=== PATIENT | male | born 1965 | race Hispanic/Latino ===

== ENCOUNTER 2018-11-18 07:42 | Day surgery (SDC) | payer OTHER, SELFPAY ==
[2018-11-16 09:03] LABS: Absolute Lymphocytes (CBC) 1.7 K/uL (0.7-4.9); Basophils % 1.1 % (0-1.3); Eosinophils % 3.6 % (0-4.4); Hematocrit 43.7 % (39.6-49.0); Lymphocytes % 28.2 % (15.3-44.8); MPV 7.1 fL (7.6-11.3); Monocytes % 8.1 % (3.3-12.3)
[2018-11-16 09:25] LABS: Potassium 4.3 mmol/L (3.5-5.1)
--- NOTE | 2018-11-16 09:52 | RAD REPORT ---
EXAM DESCRIPTION: RAD - Chest Pa And Lat (2 Views) - 11/16/2018 8:44 am CLINICAL HISTORY: Preop chest, pending hernia surgery COMPARISON: None. TECHNIQUE: PA and lateral views of the chest were obtained. FINDINGS: The lungs are clear. Heart size is normal and central vasculature is within normal limit s. No pleural effusion or pneumothorax seen. No acute bony finding noted. No aortic abnormality. IMPRESSION: No acute cardiopulmonary process.
--- NOTE | 2018-11-16 11:07 | EKG ---
Test Date: 2018-11-16 Test Time: 08:31:25 Knockout Man: AMAURY MEASUREMENT RESULTS: Intervals: Rate: 41 OR: 196 QRSD: 100 QT: 492 QTc: 405 [place]: P: 2 OR: 196 QRS: 48 T: 46 INTERPRETIVE STATEMENTS: Marked sinus bradycardia Abnormal ECG No previous ECG available for comparison Electronically Signed On 11-16-18 11:06:47 CDT by Reese Grijalva
--- OUTSIDE RECORDS SUMMARY | 2018-11-18 07:45 | XMS REPORT ---
:1965 [facility] Address [address] [place] [address] Dr. Wilson [address] [place] [id number] Care Team Providers Name Role Phone Unavailable Unavailable Unavailable Problems This patient has no known problems. Allergies, Adverse Reactions, Alerts This patient has no known allergies or adverse reactions. Medications This patient has no known medications.
[2018-11-18] MEDS ORDERED: CEFAZOLIN/SWI 1gm 1 GM/10 ML SYR ONE (08:26)
[2018-11-18] MEDS ORDERED: Ringers Lactate 1,000 ML IV ONE (08:26)
[2018-11-18] MEDS ORDERED: FENTANYL CITR 100 MCG/2 ML ONE ×2 (08:59→10:02)
[2018-11-18] MEDS ORDERED: PROPOFOL 200 MG/20 ML VIAL IV ONE (09:00)
[2018-11-18] MEDS ORDERED: LIDOCAINE 1% MPF 5 ML VIAL ONE (09:00)
[2018-11-18] MEDS ORDERED: MIDAZOLAM HCL 2 MG/2 ML INJ ONE (09:00)
[2018-11-18] MEDS ORDERED: KETOROLAC 30 MG/ML INJ ONE (10:02)
[2018-11-18] MEDS ORDERED: ONDANSETRON 4 MG/2 ML VIAL ONE (10:02)
[2018-11-18] MEDS ORDERED: HYDROCODONE/APAP 7.5/325 MG TAB PO ONE (11:30)
[2018-11-18] MEDS ORDERED: HYDROCODONE/APAP 7.5/325 MG TAB ONE (11:42)
--- NOTE | 2018-11-18 19:10 | OP ---
Date of Procedure: 11/18/2018 Surgeon: Eduardo Givens MD Practicing Urologist: KAUSHIK Montero. Preoperative Diagnosis: Bilateral inguinal hernia. Postoperative Diagnosis: Bilateral inguinal hernia. Procedure: Repair of bilateral inguinal hernia. Estimated Blood Loss: Minimal. Specimen: Hernia sac, cord lipoma. Findings: As above. Anesthesia: General. Complications: None. Disposition: The patient tolerated the procedure in stable condition, was taken to Recovery in good general condition. Procedure In Detail: The patient was brought to the OR and placed in supine position. General anest hesia began. The patient was prepped and draped in usual sterile fashion. Marcaine 0.5% was infiltr ated locally in the left groin between the anterior iliac superior spine and pubic tubercle in a fiel d block fashion. A 4 cm incision was made, subcutaneous tissue was divided. Fascia identified and d ivided and then attenuated aponeurosis present with a large indirect hernia sac and cord lipoma. Her faisal sac was from the cord structures, which was mobilized at the pubic tubercle and skeleto nized and then high ligation with omentum in there which was reduced in the peritoneal cavity and hig h ligation of the hernia sac and cord lipoma done with 2-0 Prolene suture ligature and free hand tie. Hernia sac excised and sent to Pathology as specimen and then Marlex mesh plug was placed in the in ternal ring and secured with VersaTack stapler. Onlay mesh was placed on the inguinal floor, secured medially to the pubic tubercle, superiorly to the conjoint tendon, inferiorly to the shelving edge, laterally to each other. Then, cord structures and ilioinguinal nerve were placed back in their myrna omic location, and 3-0 chromic used to approximate subcutaneous tissue and Gisell's fascia. Staple u sed to close skin. Exact same operation was carried on the right side, hernia was smaller. Exact sa me repair carried and then sterile dressing was applied. The patient was awakened and taken to [facility] in good general condition. Discharge Note: The patient will go to Day-Surgery and home when stable. Disposition: Home. Condition: Stable. Discharge Instructions: Resume home medications and diet. Activity as tolerated. No heavy lifting. Remove outer dressing in 2 days. Shower. Keep wound clean and dry. Follow up in my office in one week. Call for appointment. Tylenol No. 3 one tablet p.o. q.4 p.r.n. pain. Ice pack and scrotal s upport. ROSA/CLAIRE Voice ID: [id number] Report ID: [id number]
== END 2018-11-18 12:05 | disposition home health service (06) ==
LOC: OR 07:42
PROVIDERS: ATTEND Surgery
PROC: 0YUA0JZ Supplement Bilateral Inguinal Region with Synthetic Substitute, Open Approach (ICD-10-PCS; principal; 2018-11-18 09:30)
DX: K40.20 Bilateral inguinal hernia, without obstruction or gangrene, not specified as recurrent (principal); D17.6 Benign lipomatous neoplasm of spermatic cord
CPT/HCPCS: 36415; 71046; 80048; 85025; 88302; 88304; 93005; J0690; J2250; J2405; J2704; J3010